=== PATIENT | female | born 1985 | race Caucasian/White ===

== ENCOUNTER 2017-04-09 07:20 | Emergency (ER) | payer OTHER ==
--- NOTE | 2017-04-09 07:30 | PDOC ---
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 She is 7 weeks by dates (LMP 02/18), but has not yet had an ultrasound for this . She reports that her found her in bed this morning and was unable to wake her up. She states that her fingerstick was 23. activated EMS, who gave 1 amp of 50% dextrose. On arrival to the ED, she is alert and oriented x 3. Fingerstick blood glucose is 151. She denies recent illness, fevers/chills, nausea/vomiting/diarrhea/ abdominal pain, dysuria, cough, or any other symptoms. She has made no change in her diet or insulin regimen. V/s on arrival are notable for oral temp 96F. PCP/watermaster is Dr. Cody ([place]). OB history: a1 REVIEW OF SYSTEMS: GENERAL/CONSTITUTIONAL: No fever or chills. No weakness. No weight change. HEAD, EYES, EARS, NOSE AND THROAT: No change in vision. No ear pain or discharge. No sore throat. CARDIOVASCULAR: No chest pain or palpitations. RESPIRATORY: No cough, wheezing, or shortness of breath. GASTROINTESTINAL: No nausea, vomiting, diarrhea or constipation. GENITOURINARY: No dysuria, frequency, or change in urination. MUSCULOSKELETAL: No joint or muscle swelling or pain. No neck or back pain. SKIN: No rash or easy bruising. NEUROLOGIC: No headache, vertigo, or loss of sensation. PSYCHIATRIC: No depression or anxiety. ENDOCRINE: No increased thirst. No abnormal weight change. HEMATOLOGIC/LYMPHATIC: No anemia, easy bleeding, or history of blood clots. ALLERGIC/IMMUNOLOGIC: No hives or skin allergy. No latex allergy. PHYSICAL EXAM: GENERAL: The patient is awake, alert, and fully oriented, in no acute distress. HEAD: Normal with no signs of trauma. ENT: Pupils equal, round and reactive to light, extraocular movements intact, sclera anicteric, conjunctiva clear. Neck supple. LUNGS: Clear to auscultation bilaterally. Normal excursion. No respiratory distress or use of accessory muscles. CV: RRR, S1/S2, no MRG. Cap refill < 2 sec. ABDOMEN: Soft, non-distended, non-tender. EXTREMITIES: LLE edema, chronic per patient. NEUROLOGICAL: Normal speech, normal gait. CN II-XII grossly intact. PSYCH: Normal mood, normal affect. SKIN: Warm, dry, normal turgor, no rashes or lesions noted. Past History - Past Medical History Allergies/Adverse Reactions: Allergies Allergy/AdvReac Type Severity Reaction Status Date / Time No Known Allergies Allergy Verified 04/09/17 07:34 Home Medications: Ambulatory Orders Enoxaparin [Lovenox -] 80 mg SQ BID 04/09/17 Insulin (Levemir) [Levemir Vial] 42 unit SQ HS 04/09/17 Insulin Lispro [Humalog] 8 - 10 unit SQ BID 04/09/17 ED Treatment Course - LABORATORY CBC & Chemistry Diagram: 04/09/17 08:28 04/09/17 08:28 Medical Decision Making - Medical Decision Making 04/09/17 07:49 A/P: 31 year old insulin-dependent diabetic, woman with hypoglycemia. No change in insulin regimen, diet. No signs or symptoms of infection. 1. Labs including CBC, CMP, beta hcg, TSH (temp 96F), UA/culture 2. Transvaginal u/s to assess well-being 3. D5NS @ 75 mLs/hr 4. Took Levemir at 1030p- expect peak effect 630-830a, observe closely (q1h fingersticks) 5. Encourage PO intake 6. Re-evaluate 04/09/17 11:32 Fingersticks have remained >150. Patient is alert and feeling well. Ultrasound shows IUP <6 weeks; gestational sac without yolk sac or pole. cg 817. Patient understands that she must follow up with OB or here for repeat beta and u/s. She will use half of her Levemir dose tonight and contact her watermaster for further instructions in the morning. Return precautions reviewed. *DC/Admit/Observation/Transfer Diagnosis at time of Disposition: Hypoglycemia Qualifiers: Weeks of gestation: less than 8 weeks Qualified Code(s): Z3A.01 - Less than 8 weeks gestation of - Discharge Dispostion Disposition: HOME Condition at time of disposition: Stable Admit: No - Referrals Referrals: Wilian Gallego MD [Staff Physician] - Call tomorrow - Patient Instructions Printed Discharge Instructions: DI for Hypoglycemia Additional Instructions: LOW BLOOD SUGAR -Continue eating regular meals and using your Humalog -Use half of your Levemir dose tonight (21 units) -Call your watermaster tomorrow for further instructions -Return here for any new or concerning symptoms -Follow up with malted milk masher (number enclosed) -You will need repeat blood work and an ultrasound in about one week to determine whether the is progressing normally -If you are unable to obtain an appointment, please come here for the followup testing -Return here for abdominal pain, vaginal bleeding, or any other concerning symptoms - Post Discharge Activity
[2017-04-09 07:35] VITALS: TEMP 96
[2017-04-09] MEDS ORDERED: DEXTROSE 5%-NORMAL SALINE 1,000 ML IV SCH (08:00)
[2017-04-09 08:39] LABS: BASO % 0.5 % (0-2.0); HEMATOCRIT 40.3 % (32.4-45.2); HEMOGLOBIN 13.1 GM/dL (10.7-15.3); LYMPH % 18.5 % (8-40); MCH 29.7 pg (25.7-33.7); MCHC 32.6 g/dl (32.0-36.0); MEAN CELL VOLUME 90.9 fl (80-96); MEAN PLT VOLUME 8.4 fl (7.5-11.1); MONO % 8.3 % (3.8-10.2); NEUT % 71.7 % (42.8-82.8); PLATELET COUNT 273 K/MM3 (134-434); RBC 4.43 M/mm3 (3.60-5.2); RDW 13.8 % (11.6-15.6); WHITE BLOOD COUNT 6.3 K/mm3 (4.0-10.0)
[2017-04-09 08:53] LABS: URINE APPEARANCE CLOUDY; URINE BILIRUBIN NEGATIVE (NEGATIVE); URINE BLOOD NEGATIVE (NEGATIVE); URINE COLOR YELLOW; URINE GLUCOSE (UA) 3+ (NEGATIVE); URINE KETONE NEGATIVE (NEGATIVE); URINE LEUK ESTERASE TRACE (NEGATIVE); URINE NITRITE NEGATIVE (NEGATIVE); URINE PROTEIN NEGATIVE (NEGATIVE); URINE UROBILINOGEN NEGATIVE mg/dL (0.2-1.0)
[2017-04-09 08:55] LABS: EPI CELLS MODERATE /HPF (FEW); URINE MUCUS MANY
[2017-04-09 09:09] LABS: ALK PHOS 73 U/L (45-117); ANION GAP 7 (8-16); BILIRUBIN,TOTAL 0.3 mg/dL (0.2-1.0); BLOOD UREA NITROGEN 7 mg/dL (7-18); CALCIUM 8.3 mg/dL (8.5-10.1); CHLORIDE 107 mmol/L (98-107); CO2 25 mmol/L (21-32); CREATININE 0.5 mg/dL (0.55-1.02); GLUCOSE,RANDOM 114 mg/dL (74-106); POTASSIUM 3.8 mmol/L (3.5-5.1); SGOT/AST 29 U/L (15-37); SGPT/ALT 22 U/L (12-78); SODIUM 139 mmol/L (136-145); TOT PROT 6.6 g/dl (6.4-8.2)
[2017-04-09 10:00] VITALS: BP 121/91; PULSE 72
== END 2017-04-09 12:00 | disposition home or self-care (01) ==
LOC: EDBD 07:20 → JER 07:20
PROC: 3E0337Z Introduction of Electrolytic and Water Balance Substance into Peripheral Vein, Percutaneous Approach (ICD-10-PCS; principal; 2017-04-09)
DX: O26.891 Other specified pregnancy related conditions, first trimester (principal); O24.011 Pre-existing type 1 diabetes mellitus, in pregnancy, first trimester; E10.9 Type 1 diabetes mellitus without complications; Z3A.01 Less than 8 weeks gestation of pregnancy; Z79.4 Long term (current) use of insulin
CPT/HCPCS: 36415; 76801-TC; 80053; 81003; 81015; 82962; 84443; 84702; 85025; 87086; 96360; 96361; 99283-25

== ENCOUNTER 2017-04-16 16:37 | Emergency (ER) | payer OTHER ==
--- NOTE | 2017-04-16 17:41 | PDOC ---
History of Present Illness - General Chief Complaint: Vaginal Bleeding Stated Complaint: VAGINAL BLEEDING (7WKS ) Time Seen by Provider: 04/16/17 17:35 History Source: Patient - History of Present Illness Timing/Duration: reports: getting worse Past History - Past Medical History Allergies/Adverse Reactions: Allergies Allergy/AdvReac Type Severity Reaction Status Date / Time No Known Allergies Allergy Verified 04/16/17 16:44 Home Medications: Ambulatory Orders Insulin (Levemir) [Levemir Vial] 35 unit SQ HS 04/09/17 Insulin Lispro [Humalog] 15 unit SQ Q6H 04/09/17 COPD: No Diabetes: Yes (IDDM) - Reproductive History (#): 4 Para: 2 - Suicide/Smoking/Psychosocial Hx Smoking History: Never smoked Information on smoking cessation initiated: No Hx Alcohol Use: No Drug/Substance Use Hx: No Substance Use Type: None Review of Systems - Review of Systems Constitutional: No: Chills, Fever ABD/GI: No: Nausea, Vomiting, Abdominal cramping : No: Discharge *Physical Exam - Vital Signs Last Vital Signs Temp Pulse Resp BP Pulse Ox 99.0 F 111 H 20 124/79 99 04/16/17 16:41 04/16/17 16:41 04/16/17 16:41 04/16/17 16:41 04/16/17 16:41 - Physical Exam General Appearance: Yes: Appropriately Dressed. No: Apparent Distress Neck: positive: Supple Respiratory/Chest: positive: Lungs Clear, Normal Breath Sounds. negative: Respiratory Distress Cardiovascular: positive: Regular Rate, S1, S2 Gastrointestinal/Abdominal: positive: Soft. negative: Tender Integumentary: positive: Dry, Warm Neurologic: positive: Fully Oriented, Alert, Normal Mood/Affect ED Treatment Course - RADIOLOGY Radiology Studies Ordered: Category Date Time Status TRANSVAGINAL US PREG [US] Stat Ultrasound 04/16/17 17:40 Ordered Medical Decision Making - Medical Decision Making 04/16/17 17:40 35 -year-old female, (/sp spon AB), ~ 7 weeks by dates, here with vaginal bleeding. She states she started spotting 2 days ago and was seen in the ED in the [facility] and told she had a positive IUP, but does not remember if they mention cardiac activity and does not know what her beta was. Returns today because bleeding has since worsened with multiple clots. No abdominal pain, dysuria, nausea, vomiting, fever or chills See exam Trimester bleed in patient with known IUP (based on pt's hx) Mildly tachycardia w/ benign abd -beta -T&S -ua -Rpt US today 04/16/17 19:06 Patient signed out to HENRIETTA Bray. Pt was taken to ultrasound before I got a chance to perform a pelvic. Pelvic to be performed by HENRIETTA Bray as d/w provider *DC/Admit/Observation/Transfer - Referrals Referrals: STAFF,NOT ON [Primary Care Provider] - - Patient Instructions - Post Discharge Activity
--- NOTE | 2017-04-16 18:07 | PDOC ---
*Physical Exam - Vital Signs Last Vital Signs Temp Pulse Resp BP Pulse Ox 99.0 F 111 H 20 124/79 99 04/16/17 16:41 04/16/17 16:41 04/16/17 16:41 04/16/17 16:41 04/16/17 16:41 Medical Decision Making - Medical Decision Making 04/16/17 18:06 Pt seen by the Advanced Practice Provider under my direct supervision Ancillary studies reviewed I agree with plan as outlined by the Advanced Practice Provider HENRIETTA Alcantar *DC/Admit/Observation/Transfer - Referrals Referrals: STAFF,NOT ON [Primary Care Provider] - - Patient Instructions - Post Discharge Activity
[2017-04-16 18:26] LABS: URINE APPEARANCE CLOUDY; URINE BILIRUBIN NEGATIVE (NEGATIVE); URINE BLOOD 3+ (NEGATIVE); URINE COLOR DKYELLOW; URINE GLUCOSE (UA) 1+ (NEGATIVE); URINE KETONE NEGATIVE (NEGATIVE); URINE LEUK ESTERASE TRACE (NEGATIVE); URINE NITRITE NEGATIVE (NEGATIVE); URINE UROBILINOGEN NEGATIVE mg/dL (0.2-1.0)
[2017-04-16 18:30] LABS: URINE PROTEIN 2+ (NEGATIVE)
[2017-04-16 18:37] LABS: EPI CELLS FEW /HPF (FEW); URINE BACTERIA RARE /hpf (NONE SEEN); URINE MUCUS RARE
--- NOTE | 2017-04-16 21:02 | PDOC ---
*Physical Exam - Vital Signs Last Vital Signs Temp Pulse Resp BP Pulse Ox 99.0 F 111 H 20 124/79 99 04/16/17 16:41 04/16/17 16:41 04/16/17 16:41 04/16/17 16:41 04/16/17 16:41 ED Treatment Course - ADDITIONAL ORDERS Additional order review: Laboratory Results 04/16/17 04/16/17 04/16/17 18:10 17:43 17:40 Beta HCG, Quant 829.3 Urine Color Dkyellow Urine Appearance Cloudy Urine pH 5.0 Ur Specific [place] 1.023 Urine Protein 2+ H Urine Glucose (UA) 1+ H D Urine Ketones Negative Urine Blood 3+ H Urine Nitrite Negative Urine Bilirubin Negative Urine Urobilinogen Negative Ur Leukocyte Esterase Trace Urine WBC (Auto) 48 Urine RBC (Auto) 2927 Ur Epithelial Cells Few Urine Bacteria Rare Urine Mucus Rare Blood Type A POSITIVE Antibody Screen Negative Medical Decision Making - Medical Decision Making 04/16/17 20:43 Endorsed to me to follow US and do vaginal exam and disposition Patient Name: NICK SONI THIS IS A PRELIMINARY REPORT FROM [facility]PER[facility] DATE OF SERVICE: 2017-04-16 18:13:29 IMAGES: 42 EXAM: OB ULTRASOUND.LESS THAN 14 WEEKS US ENDOVAGINAL US DOPPLER REASON FOR EXAM: Bleeding COMPARISON: none FINDINGS: Transabdominal and transvaginal diallo scale and duplex imaging. A single intrauterine gestational sac 5 weeks 0days seen with pole measuring 6 weeks 0 days gestational age without detected heart rate. There is no visualized with yolk sac.. There is no subchorionic hemorrhage seen. Uterus is anteverted measuring 11.4 x 5.8 x 6.9 cm. Cervix is closed. Bilateral ovaries are within normal with normal arterial flow and spectral wave form. Right ovary measures 3.7 x 2 x 2.2 cm Left ovary measures 3.5 x 2.1 x 1.5cm No suspicious pelvic mass or free fluid identified. IMPRESSION: Single intrauterine with pole 6 weeks zero days gestation without heart rate detected. This is suspicious for early failure. Continued close followup. THIS DOCUMENT HAS BEEN ELECTRONICALLY SIGNED Elham Dillon D.O. 04/16/2017 20:23 EST MJennifer. Please call Imaging Mathematics Technician [phone] ([phone]) with questions. INTERPRETING RADIOLOGIST: Elham Dillon MD Electronically Signed: Apr 16, 2017 08:24PM ES 04/16/17 20:44 Laboratory Tests 04/16/17 17:43 Beta HCG, Quant 829.3 04/16/17 21:02 VE Minimal bleeding from closed os, small amount of drak bloood in vault, no CMT I discussed the physical exam findings, ancillary test results and final diagnoses with the patient. I answered all of the patient's questions. The patient was satisfied with the care received and felt comfortable with the discharge plan and treatment plan. The Patient agrees to follow up with the primary care physician within 24-72 hours. 04/16/17 22:48 *DC/Admit/Observation/Transfer Diagnosis at time of Disposition: demise - Discharge Dispostion Disposition: HOME Condition at time of disposition: Stable - Referrals Referrals: STAFF,NOT ON [Primary Care Provider] - - Patient Instructions Printed Discharge Instructions: DI for Miscarriage Additional Instructions: Your Discharge Instructions: You must call primary care physician within 24 hours to arrange follow-up. Return to the Emergency Department with any new, persistent or worsening symptoms, for fever, chills, SOB, dizziness or any other concerning changes that may occur. If bleeding worsens greater than 1 pad an hour return to the emergency room immediately. Otherwise he should keep your OB appointment on Monday as per schedule. - Post Discharge Activity
[2017-04-16 21:20] VITALS: BP 102/69; PULSE 95; TEMP 98.3
== END 2017-04-16 21:24 | disposition home or self-care (01) ==
LOC: JER 16:37
DX: O26.891 Other specified pregnancy related conditions, first trimester (principal); O02.1 Missed abortion; Z3A.01 Less than 8 weeks gestation of pregnancy
CPT/HCPCS: 36415; 76817-TC; 81003; 81015; 84702; 86850; 86900; 86901; 87086; 99282-25

== ENCOUNTER 2018-04-18 14:31 | Emergency (ER) | payer SELFPAY ==
[2018-04-18 14:37] VITALS: BMI 27.9
--- NOTE | 2018-04-18 15:43 | PDOC ---
History of Present Illness - General Chief Complaint: Blood Sugar Problem Stated Complaint: Blood Sugar Problem Time Seen by Provider: 04/18/18 15:43 History Source: Patient Exam Limitations: No Limitations - History of Present Illness Initial Comments: Pt is a 32 yo F, with PMH of Type 1 DM (on Levemir and Humalog), May-Thurner ds (iliac stents, on lovenox + ASA), who is presenting after a hypoglycemic episode , and arrived from home via EMS. Pt states over the past few days, she has had dry nasal congestion, dry cough, and decreased PO intake due to lack of appetite. She has not had any food or drink since yesterday evening. When she woke up this AM, she felt light-headed, but took her BG at home at low 200s. She took her humalog dose (6 units), but did not eat. She then went back to bed , but does not remember anything after that. EMS stated pt was found by the who called EMS. D10 was administered after pt BGM found to be 21, and improved to 137 on arrival. Pt denies any fevers/chills, headache, vision changes, chest pain, palpitations, SOB, nausea/vomiting, abdominal pain, urinary symptoms, diarrhea/constipation, or leg swelling. PCP: "different doctors at [facility] Endocrine: Dr. Cody LMP: Apr 02 and was normal in duration and amount of bleeding. Social: Pt denies any cigarette, alcohol, or drug use. Pt denies any recent travel or sick contacts. Surgical: no relevant history. Family: no relevant history. 04/18/18 17:51 Past History - Travel Traveled outside of the country in the last 30 days: No Close contact w/someone who was outside of country & ill: No - Past Medical History Allergies/Adverse Reactions: Allergies Allergy/AdvReac Type Severity Reaction Status Date / Time No Known Allergies Allergy Verified 04/18/18 14:34 Home Medications: Ambulatory Orders Insulin (Levemir) [Levemir Vial] 30 unit SQ BID 04/09/17 Insulin Lispro [Humalog] 0 unit SQ ASDIR 04/09/17 Clopidogrel Bisulfate [Plavix -] 75 mg PO DAILY 04/18/18 COPD: No Diabetes: Yes (IDDM) HTN: No Hypercholesterolemia: No - Reproductive History (#): 4 Para: 2 Cervical CA: No Dysfunctional Uterine Bleeding: No Ectopic : No Endometrial CA: No Polycystic Ovaries: No Therapeutic (s) & number: Yes Tubal Ligation: No Spontaneous : 0 - Suicide/Smoking/Psychosocial Hx Smoking History: Never smoked Hx Alcohol Use: No Drug/Substance Use Hx: No Substance Use Type: None Review of Systems - Review of Systems Able to Perform ROS?: Yes Is the patient limited Albanian proficient: No *Physical Exam - Vital Signs Last Vital Signs Temp Pulse Resp BP Pulse Ox 92 F L 80 18 141/94 100 04/18/18 14:35 04/18/18 14:35 04/18/18 14:35 04/18/18 14:35 04/18/18 14:35 Moderate Sedation - Procedure Monitoring Vital Signs: Procedure Monitoring Vital Signs Temperature 92 F L 04/18/18 14:35 Pulse Rate 80 04/18/18 14:35 Respiratory Rate 18 04/18/18 14:35 Blood Pressure 141/94 04/18/18 14:35 O2 Sat by Pulse Oximetry (%) 100 04/18/18 14:35 ED Treatment Course - LABORATORY CBC & Chemistry Diagram: 04/18/18 16:30 04/18/18 16:30 - ADDITIONAL ORDERS Additional order review: Laboratory Results 04/18/18 15:19 POC Glucometer 137.81032 04/18/18 15:19 POC Glucometer 137.18426 Medical Decision Making - Medical Decision Making Pt was seen at bedside, also will be seen by attending Dr. Lara. Pt presenting after a hypoglycemic episode, and arrived from home via EMS. Pt states over the past few days, she has had dry nasal congestion, dry cough, and decreased PO intake due to lack of appetite. She has not had any food or drink since yesterday evening. When she woke up this AM, she felt light-headed, but took her BG at home at low 200s. She took her humalog dose (6 units), but did not eat. She then went back to bed, but does not remember anything after that. EMS stated pt was found by the who called EMS. D10 was administered after pt BGM found to be 21, and improved to 137 on arrival. Pts temp on arrival was 92 rectal, but pt states she did not have her heat on in her home and it was cold in her bedroom. Pt denies any fevers/chills, headache, vision changes, chest pain, palpitations, SOB, nausea/vomiting, abdominal pain, urinary symptoms , diarrhea/constipation, or leg swelling. BGM on arrival: 137. Rectal temp 92 on presentation, mildly HTN (141/94). Pt A/ O x4 on exam. Pupils PERRLA. PE showed intact medical and health services manager, good muscle strength and sensation. Heart and lung sounds clear. No abdominal/CVA tenderness. Benign PE. Considering hypoglycemic episode 2/2 decreased PO intake vs accidental overdose of DM medications vs non-compliance with medication, poor diet vs thyroid disorder vs infection (pneumonia, UTI). Pt not on any PO/sulfonylurea DM medications. Ordered work-up including CBC, CMP, TSH, T4, UA, urine culture, urine , ECG, and chest x-ray. Pt placed on yolande hugger and under warm blankets to improve hypothermia. Will continue to reassess pt and monitor for symptomatic improvement. 04/18/18 16:41 ECG: HR 76, intervals WNL, NSR. No significant ST segment changes, no TWIs. Repeat rectal temp 94.6. Will keep pt on active re-warming until improvement. Pt lying comfortably. Labs sent and pending, pt provided urine sample. 04/18/18 16:46 CBC: WBC 11.9 with neutrophilic shift. Urine negative. Pending CMP and thyroid. Repeat BGM 121, pt eating and comfortable. Will continue BGM Q1hr. 04/18/18 17:20 UA: 3+ glucose, trace ketones, no infection. 04/18/18 17:47 CMP WNL, thyroid tests WNL. 04/18/18 18:03 Repeat rectal temp 97.5. Pt comfortable and has been tolerating PO intake. Repeat BGM 279. Considering normal lab results and imaging pt can be discharged to home with follow-up. Pt advised to follow-up with PCP in 1-2 days. Strict return precautions provided with pt understanding. 04/18/18 18:33 *DC/Admit/Observation/Transfer Diagnosis at time of Disposition: Hypoglycemia - Discharge Dispostion Disposition: HOME Condition at time of disposition: Improved Decision to Admit order: No - Referrals Referrals: Kelvin Ward [Other] - Patient Instructions Printed Discharge Instructions: DI for Hypoglycemia Additional Instructions: You were seen in the ER today for low blood sugar. The results of your labs and imaging today showed no acute infection, and your blood sugar improved after the ambulance administered sugar. Please follow-up with your primary care doctor within 1-2 days to discuss your visit and make sure your symptoms have improved. Please return to the ER if you have any further hypoglycemic episodes , confusion, development of fevers or chills, loss of consciousness, inability to tolerate food or fluids, or any other concerns. Please make sure to test your blood sugar with meals and before administration of your blood sugar medication. - Post Discharge Activity
[2018-04-18 16:47] LABS: BASO % 0.2 % (0-2.0); HEMATOCRIT 37.7 % (32.4-45.2); HEMOGLOBIN 12.6 GM/dL (10.7-15.3); LYMPH % 6.2 % (8-40); MCH 28.3 pg (25.7-33.7); MCHC 33.4 g/dl (32.0-36.0); MEAN CELL VOLUME 84.6 fl (80-96); MEAN PLT VOLUME 8.6 fl (7.5-11.1); MONO % 2.8 % (3.8-10.2); NEUT % 90.8 % (42.8-82.8); PLATELET COUNT 361 K/MM3 (134-434); RBC 4.46 M/mm3 (3.60-5.2); RDW 14.2 % (11.6-15.6); WHITE BLOOD COUNT 11.9 K/mm3 (4.0-10.0)
--- NOTE | 2018-04-18 16:58 | PDOC ---
Attending Attestation - Resident Resident Name: Tran Gutiérrez - ED Attending Attestation I have performed the following: I have examined & evaluated the patient, The case was reviewed & discussed with the resident, I agree w/resident's findings & plan, Exceptions are as noted - HPI HPI: 04/18/18 16:53 The patient is a 32 year old female with PMH of Type 1 DM and May-Thurner syndrome s/p iliac stent on lovenox and aspirin who presents to the ER after being found unresponsive at home. Patient states that she took her usual 6 units of humalog without eating anything this morning. Patient notes she went to her bedroom and lied on the bed and does not remember what happened afterwards. Patient's states that he found her on the bed drenched in sweat and not responding to him. He activated EMS and patient's blood glucose was found to be 27. She was given D10 by EMS en route to the ER, with subsequent return to baseline mental status. Pt's body temp noted to be 92 rectally in ED. Pt's states that their heat is broken. The patient denies chest pain, shortness of breath, headache and dizziness. Denies fever, chills, nausea, vomit, diarrhea and constipation. Denies dysuria, frequency, urgency and hematuria. Allergies: NKA Past surgical history: None reported. Social history: No reported alcohol, drug or cigarette use. - Physicial Exam PE: 04/18/18 16:57 "GENERAL: Awake, alert, and fully oriented, in no acute distress. HEAD: No signs of trauma EYES: PERRLA, EOMI, sclera anicteric, conjunctiva clear ENT: Auricles normal inspection, hearing grossly normal, nares patent, oropharynx clear without exudates. Moist mucosa NECK: Nontender, no stepoffs, Normal ROM, supple, no lymphadenopathy, JVD, or masses LUNGS: Breath sounds equal, clear to auscultation bilaterally. No wheezes, and no crackles HEART: Regular rate and rhythm, normal S1 and S2, no murmurs, rubs or gallops ABDOMEN: Soft, nontender, normoactive bowel sounds. No guarding, no rebound. No masses EXTREMITIES: Normal range of motion, no edema. No clubbing or cyanosis. No cords, erythema, or tenderness NEUROLOGICAL: Cranial nerves II through XII intact. 5/5 strength and sensation in all extremities, Normal speech, normal gait, normal cerebellar function SKIN: Warm, Dry, normal turgor, no rashes or lesions noted. - Medical Decision Making 04/18/18 16:57 32 F with episode of unresponsiveness in the context of severe hypoglycemia, now back to baseline mental status after D10. Pt likely hypoglycemic due to taking her insulin without eating. Pt now tolerating PO and has normal fingerstick. Pt notably was hypothermic in ED, likely 2/2 being unresponsive and diaphoretic in her apartment with no heat. - Labs - CXR, UA to evaluate for infectious process - Feed, repeat fingersticks Q1hr - Connie roxanneyo 04/18/18 18:15 Labs wnl CXR and UA unremarkable Pt reassessed - now feels much better. tolerating PO Repeat fingerstick wnl 04/18/18 18:29 Temp 97.5 Pt is well appearing, with normal vitals. Clinically stable for DC at this time. I discussed the physical exam findings, ancillary test results and final diagnoses with the patient. I answered all of the patient's questions. The patient was satisfied with the care received and felt comfortable with the discharge plan and treatment plan. The patient agrees to follow up with the primary care physician within 24-72 hours.
[2018-04-18 17:08] LABS: HCG,QUALITATIVE URINE Negative
[2018-04-18 17:31] LABS: URINE APPEARANCE CLEAR; URINE BILIRUBIN NEGATIVE (<2.0 mg/dL); URINE COLOR YELLOW; URINE GLUCOSE (UA) 3+ (NEGATIVE); URINE KETONE TRACE (NEGATIVE); URINE LEUK ESTERASE NEGATIVE (NEGATIVE); URINE NITRITE NEGATIVE (NEGATIVE); URINE PROTEIN NEGATIVE (NEGATIVE); URINE UROBILINOGEN NEGATIVE mg/dL (0.2-1.0)
[2018-04-18 17:59] LABS: ALBUMIN 3.3 g/dl (3.4-5.0); ALK PHOS 103 U/L (45-117); ANION GAP 7 MMOL/L (8-16); BILIRUBIN,TOTAL 0.2 mg/dL (0.2-1); BLOOD UREA NITROGEN 12 mg/dL (7-18); CALCIUM 9.3 mg/dL (8.5-10.1); CHLORIDE 104 mmol/L (98-107); CO2 28 mmol/L (21-32); CREATININE 0.5 mg/dL (0.55-1.3); GLUCOSE,RANDOM 101 mg/dL (74-106); SGOT/AST 22 U/L (15-37); SGPT/ALT 20 U/L (13-61); SODIUM 139 mmol/L (136-145); TOT PROT 7.6 g/dl (6.4-8.2)
[2018-04-18 18:24] VITALS: TEMP 97.5
[2018-04-18 19:06] VITALS: BP 118/78; PULSE 98
--- NOTE | 2018-04-19 11:58 | EKG ---
Test Reason : Blood Pressure : / mmHG Vent. Rate : 076 BPM Atrial Rate : 076 BPM P-R Int : 156 ms QRS Dur : 078 ms QT Int : 418 ms P-R-T Axes : 076 073 046 degrees QTc Int : 470 ms POOR DATA QUALITY, INTERPRETATION MAY BE ADVERSELY AFFECTED NORMAL SINUS RHYTHM EARLY REPOLARIZATION NORMAL ECG NO PREVIOUS ECGS AVAILABLE Confirmed by MIYA MCCORMICK MD ([id number]) on 04/19/2018 11:58:20 AM Referred By: Confirmed By:MIYA MCCORMICK MD
== END 2018-04-18 19:05 | disposition home or self-care (01) ==
LOC: JER 14:31
DX: E10.649 Type 1 diabetes mellitus with hypoglycemia without coma (principal); Z79.01 Long term (current) use of anticoagulants
CPT/HCPCS: 36415; 71046-TC-FY; 80053; 81003; 82962; 84439; 84443; 84703; 85025; 87086; 93005; 93010; 99283-25